=== PATIENT | male | born 1950 | race American Indian/Alaskan Native ===

== ENCOUNTER 2021-06-29 13:26 | Outpatient (CLI) | payer OTHER ==
--- NOTE | 2021-06-29 14:30 | Cat Scan Report ---
CT ABDOMEN AND PELVIS WITHOUT CONTRAST HISTORY: C61 prostate cancer. COMPARISON: None. TECHNIQUE: CT images of the abdomen and pelvis were obtained without administration of intravenous co ntrast. All CT scans at this location are performed using CT dose reduction for ALARA by means of au tomated exposure control. FINDINGS: Lungs/bones: Mild interstitial prominence with increased interstitial change in the lower lungs Abdomen/pelvis: Hypodensities are seen within left hepatic lobe and right hepatic lobe. Left hepatic lobe hypodensity measures 3.6 x 2.2 cm. Spleen, adrenal glands, pancreas, gallbladder and upper GI t ract appear normal. There is a large lesion within the right kidney measuring 7.0 x 6.4 cm. This lesi on appears more complex than a simple cyst. Nonobstructing stones are seen in bilateral kidneys. Larg est on the right measures 5 mm. Right renal cyst is also identified. Atherosclerotic changes of aorta Diffuse bladder wall thickening. Questionable bladder wall gas. No free fluid is identified. No domin ant adenopathy IMPRESSION: 1. There is a large mass within the right kidney. This mass appears complex with Hounsfield unit 39. A postcontrast CT examination and follow-up is recommended to exclude underlying liver lesion/maligna ncy including renal cell carcinoma 2. Nonobstructing bilateral renal stones. No hydronephrosis 3. Bladder wall thickening. Questionable bladder wall gas. Infection cannot be excluded. Clinical cor relation follow-up. 4. Hypodensities in the liver could represent cyst. 5. Chronic interstitial change in the lower lungs Signer Name: Kian Mccarty MD Signed: 06/29/2021 2:26 PM Workstation Name: [employer]
== END 2021-06-29 13:27 | disposition home or self-care (01) ==
LOC: CT 13:26
PROVIDERS: ATTEND Urology
DX: C61 Malignant neoplasm of prostate (principal); N28.89 Other specified disorders of kidney and ureter; N20.0 Calculus of kidney; N32.89 Other specified disorders of bladder; J98.4 Other disorders of lung
CPT/HCPCS: 74176

== ENCOUNTER 2021-08-03 09:44 | Outpatient (CLI) | payer OTHER ==
--- NOTE | 2021-08-03 14:58 | Nuclear Medicine Report ---
NUCLEAR MEDICINE BONE SCAN, WHOLE BODY INDICATION: Initial staging of prostate cancer. TECHNIQUE: 26.3 mCi of Tc-99m MDP were injected IV. Whole body images were obtained. COMPARISON: CT abdomen pelvis without contrast 08/29/2021. FINDINGS: Skeletal Structures: Fairly symmetric, likely degenerative uptake is present involving the shoulders , lower lumbar spine, wrists and feet. Skeletal Lesions: None. Soft Tissues: Normal. Kidneys: Normal, symmetric activity. Additional Findings: None. IMPRESSION: No evidence for osseous metastasis on bone scan.. Signer Name: Byron Ford Jr, MD Signed: 08/03/2021 2:53 PM Workstation Name: [id number]
== END 2021-08-03 09:45 | disposition home or self-care (01) ==
LOC: NM 09:44
PROVIDERS: ATTEND Urology
DX: C61 Malignant neoplasm of prostate (principal)
CPT/HCPCS: 78306; A9503